=== PATIENT | male | born 1955 | race Two or more races ===

== ENCOUNTER 2019-06-28 20:12 | Emergency (ER) | payer OTHER ==
[~2019-06-28] VITALS: Ht 180.3 cm; Wt 79.4 kg
[2019-06-28] MEDS ORDERED: ECOTRIN325 M1 (20:25)
[2019-06-28] MEDS ORDERED: ALLERGY RELIE15.8 ML (20:26)
[2019-06-28] MEDS ORDERED: ALLERGY RELIEF10 M3 (20:26)
[2019-06-28] MEDS ORDERED: VITAMIN B122500 MCG (20:27)
[2019-06-28] MEDS ORDERED: IRON236 MG (20:27)
[2019-06-28] MEDS ORDERED: VITAMIN C500 M6 (20:27)
== END 2019-06-29 14:23 | disposition home or self-care (01) ==
LOC: ER 20:12
DX: R42 Dizziness and giddiness (principal); D50.0 Iron deficiency anemia secondary to blood loss (chronic)
CPT/HCPCS: 93005; 86904; 86922; 36430; P9021

== ENCOUNTER 2019-09-14 12:22 | Emergency (ER) | payer OTHER ==
[~2019-09-14] VITALS: Ht 180.3 cm; Wt 80.3 kg
[~2019-09-14 12:22] MED LIST: ALLERGY RELIE15.8 ML; ALLERGY RELIEF10 M3; ECOTRIN325 M1; IRON236 MG; VITAMIN B122500 MCG; VITAMIN C500 M6
[2019-09-14] MEDS ORDERED: IRBESARTAN-HCT1 EACH PO (12:50)
== END 2019-09-14 18:58 | disposition home or self-care (01) ==
LOC: ER 12:22
DX: I80.03 Phlebitis and thrombophlebitis of superficial vessels of lower extremities, bilateral (principal)

== ENCOUNTER 2019-09-16 08:30 | Outpatient (CLI) | payer OTHER ==
[~2019-09-16 08:30] MED LIST changes: +IRBESARTAN-HCT1 EACH PO
== END 2019-09-16 09:01 | disposition home or self-care (01) ==
LOC: NUCLEAR 08:30
DX: I80.03 Phlebitis and thrombophlebitis of superficial vessels of lower extremities, bilateral (principal); I82.403 Acute embolism and thrombosis of unspecified deep veins of lower extremity, bilateral

== ENCOUNTER 2019-09-17 10:15 | Outpatient (CLI) | payer OTHER | END 2019-09-17 10:17 | disposition home or self-care (01) | LOC: NUCLEAR 10:15 | DX: I73.9 Peripheral vascular disease, unspecified (principal); I80.03 Phlebitis and thrombophlebitis of superficial vessels of lower extremities, bilateral; I82.403 Acute embolism and thrombosis of unspecified deep veins of lower extremity, bilateral ==

== ENCOUNTER 2019-11-26 06:53 | Emergency (ER) | payer OTHER ==
[~2019-11-26] VITALS: Ht 180.3 cm; Wt 79.4 kg
== END 2019-11-26 09:46 | disposition home or self-care (01) ==
LOC: ER 06:53
DX: S89.81XA Other specified injuries of right lower leg, initial encounter (principal); R42 Dizziness and giddiness; R55 Syncope and collapse; D64.89 Other specified anemias; W18.39XA Other fall on same level, initial encounter; Y93.89 Activity, other specified; Y92.098 Other place in other non-institutional residence as the place of occurrence of the external cause; Y99.8 Other external cause status

== ENCOUNTER 2019-12-03 06:26 | Emergency (ER) | payer OTHER ==
[~2019-12-03] VITALS: Ht 180.3 cm; Wt 95.3 kg
== END 2019-12-03 08:43 | disposition home or self-care (01) ==
LOC: ER 06:26
DX: M79.672 Pain in left foot (principal); I80.3 Phlebitis and thrombophlebitis of lower extremities, unspecified